=== PATIENT | female | born 1980 ===

== ENCOUNTER 2019-01-19 07:17 | Day surgery (SDC) | payer OTHER ==
[2019-01-16 09:16] VITALS: BMI 34.7
[2019-01-19] MEDS ORDERED: oxyCODONE HCL 5 MG TABLET PO PRN (08:54)
[2019-01-19] MEDS ORDERED: PROMETHAZINE HCL 25 MG/1 ML VIAL IVPUSH PRN (08:54)
[2019-01-19] MEDS ORDERED: LACTATED RINGERS SOLUTION 1,000 ML IV SCH (09:00)
[2019-01-19] MEDS ORDERED: LIDOCAINE HCL 1%, 10 MG/ML (20ML VIAL) ONE (12:03)
[2019-01-19] MEDS ORDERED: PROPOFOL 20 ML ONE (12:08)
[2019-01-19] MEDS ORDERED: MIDAZOLAM HCL 2 MG/2 ML SINGLE DOSE VIAL ONE (12:08)
[2019-01-19] MEDS ORDERED: LIDOCAINE HCL/PF 2% SDV 5ML VIAL ONE (12:11)
[2019-01-19] MEDS ORDERED: CLINDAMYCIN PHOSPHATE 600 MG/4 ML VIAL ONE (12:28)
[2019-01-19] MEDS ORDERED: CLINDAMYCIN 600 MG PREMIX BAG IVPB ONE (12:29)
[2019-01-19] MEDS ORDERED: LIDOCAINE HCL 1%, 10 MG/ML (20ML VIAL) NR ONE (12:38)
[2019-01-19] MEDS ORDERED: DEXAMETHASONE SOD PHOSPHATE 4 MG/1 ML VIAL ONE (12:38)
[2019-01-19 14:20] VITALS: TEMP 98
[2019-01-19 15:29] VITALS: BP 119/75; PULSE 66
--- NOTE | 2019-01-19 20:13 | OP ---
DATE OF OPERATION: 01/19/2019 PREOPERATIVE DIAGNOSIS: Right breast atypical ductal hyperplasia. POSTOPERATIVE DIAGNOSIS: Right breast atypical ductal hyperplasia. PROCEDURE: Right breast wide localized lumpectomy. SURGEON: Yareli Frey M.D. ANESTHESIA: General. ESTIMATED BLOOD LOSS: Minimal. COMPLICATIONS: None. This was a sterile procedure. INDICATION FOR PROCEDURE: Patient presented with a screening mammogram, noted calcifications in the upper outer right breast. She underwent stereotactic needle biopsy, and pathology showed a mucocele-like lesion with atypical ductal hyperplasia. in the lesion. The procedure was discussed with her. All the questions answered. PROCEDURE IN DETAIL: Patient brought to [facility] in [place], taken to mammography where wire was used to localize the clip in the upper outer right breast. Patient was then brought to the operating room, and after induction of general anesthesia and IV antibiotics, the right breast was prepped and draped in sterile fashion. The area in the upper outer right breast was anesthetized with 1% lidocaine without epinephrine. A curvilinear incision made in the upper outer right breast, and the wire was used, and the guide to get down to the area. This was excised en bloc and tagged with a long suture lateral, short suture superior, and sent for special radiograph. The specimen and the radiograph showed the wire and clip to be intact within the specimen. This was then sent to pathology for permanent section. Hemostasis assured with electrocautery. The parenchyma approximated with interrupted 2-0 Vicryl, skin approximated with interrupted 2-0 Vicryl, running 4-0 Prolene. A sterile dressing with Tegaderm, 4x4s applied. She tolerated procedure well, was extubated on the operating room table and taken to recovery in good condition. Julianne [id number]
--- NOTE | 2019-01-22 14:00 | PATH ---
Surgical Pathology Report Patient Name: OSWALD LEE [facility]. Rec. #: [id number] /Age/Gender: 1980 (Age: 38) / F Account: [id number] Location: [facility] SURGICAL Taken: 01/19/2019 Received: 01/19/2019 Reported: 01/22/2019 Physicians: Yareli Frey M.D. Specimen(s) Received RIGHT BREAST MASS Clinical History None given Final Diagnosis BREAST, RIGHT, LUMPECTOMY: BENIGN BREAST PARENCHYMA WITH CHANGES OF PRIOR BIOPSY AND ASSOCIATED FAT NECROSIS IN A BACKGROUND OF FIBROCYSTIC CHANGES INCLUDING STROMAL FIBROSIS, MICROCYSTS, ADENOSIS, FOCAL COLUMNAR CELL CHANGES, AND MICROCALCIFICATIONS. Electronically Signed Myesha Virgen M.D. Gross Description Received fresh on an AccuGrid, labeled "right breast lumpectomy," is a 5.3 x 5.0 x 2.5 cm. milligan-yellow, irregular, portion of fibroadipose tissue with a needle localization wire present. There is a short suture marking the superior aspect and a long suture marking the lateral aspect, per the surgeon. There is no skin or nipple present. The specimen is inked as follows: Superior blue; inferior green; anterior and lateral red; medial yellow; deep black. The specimen is serially sectioned from anterior to deep. Sectioning reveals a 1.1 x 0.8 x 0.8 cm focus of firm fibrous tissue. No definitive mass is identified. Vp Delivery sections are submitted in 9 cassettes as follows: 1-4-focus of firm fibrous tissue sequentially submitted from anterior to deep (each with inferior, medial and lateral margins); 5-6-fibrous tissue surrounding firm focus (each with inferior, medial and lateral margins); 7-superior margin; 8-anterior margin; 9-deep margin. Time to formalin fixation: 60 minutes Total formalin fixation time: Approximately 28 hours. 01/20/201901/20/2019
== END 2019-01-19 15:31 | disposition home or self-care (01) ==
LOC: JASU-SURG 07:17
PROVIDERS: ATTEND Surgery
PROC: 0HBT0ZZ Excision of Right Breast, Open Approach (ICD-10-PCS; principal; 2019-01-19 10:30)
DX: N60.11 Diffuse cystic mastopathy of right breast (principal); N60.21 Fibroadenosis of right breast
CPT/HCPCS: 19281; 76098-TC-FY; 84703; 94760